=== PATIENT | male | born 1975 | race Caucasian/White ===

== ENCOUNTER 2017-07-15 21:40 | Emergency (ER) | payer BC ==
[~2017-07-15] VITALS: Ht 177.8 cm; Wt 93.0 kg
[2017-07-16 02:17] VITALS: BP 117/63
== END 2017-07-16 02:17 | DRG 914 ==
LOC: ED 21:40
PROC: 3E0T3BZ Introduction of Anesthetic Agent into Peripheral Nerves and Plexi, Percutaneous Approach (ICD-10-PCS; principal; 2017-07-15)
DX: S68.620A Partial traumatic transphalangeal amputation of right index finger, initial encounter (principal); J45.909 Unspecified asthma, uncomplicated; S68.622A Partial traumatic transphalangeal amputation of right middle finger, initial encounter; S68.624A Partial traumatic transphalangeal amputation of right ring finger, initial encounter; W58.01XA Bitten by alligator, initial encounter; Y93.89 Activity, other specified; Y92.89 Other specified places as the place of occurrence of the external cause